=== PATIENT | female | born 1980 | race Two or more races ===

== ENCOUNTER 2016-05-05 21:36 | Inpatient (IN) | payer MEDICAID, OTHER ==
[2016-05-05] MEDS ORDERED: SODIUM CHLORIDE 0.9% FLUSH 20 ML ONE (22:22)
[2016-05-05] MEDS ORDERED: IV START KIT ONE (22:22)
[2016-05-05] MEDS ORDERED: OXYTOCIN IN LR 500 ML IV ONE (22:25)
[2016-05-05] MEDS ORDERED: LACTATED RINGERS 1,000 ML IV PRN (22:25)
[2016-05-05] MEDS ORDERED: PENICILLIN G POTASSIUM 5 MMU in NS 0.9% (MINI-BAG PLUS) 100 ML IV ONE (22:29)
[2016-05-05] MEDS ORDERED: LACTATED RINGERS 1,000 ML IV SCH (22:30)
[2016-05-05] MEDS ORDERED: ACETAMINOPHEN 500 MG TABLET PO ONE (22:30)
[2016-05-05] MEDS ORDERED: PENICILLIN G 3 MIL UNIT PREMIX 50 ML IV ONE (22:42)
[2016-05-05 22:43] VITALS: BMI 31.9
[2016-05-05] MEDS ORDERED: SPINAL PROCEDURAL TRAY 1 EACH ONE (22:47)
[2016-05-05] MEDS ORDERED: PHENYLEPHRINE 10 MG/1 ML (1%) VIAL ONE (22:47)
[2016-05-05] MEDS ORDERED: MORPHINE SULFATE (DURAMORPH) 1 MG/ML 10ML AMP ONE (22:47)
[2016-05-05] MEDS ORDERED: ONDANSETRON 4 MG/2ML 2 ML VIAL ONE (22:47)
[2016-05-05] MEDS ORDERED: OXYTOCIN 10 UNITS/ML VIAL ONE (22:47)
[2016-05-05] MEDS ORDERED: SODIUM CHLORIDE 0.9% FLUSH 10 ML ONE (22:47)
[2016-05-05] MEDS ORDERED: FENTANYL 100 MCG/2 ML VIAL ONE (22:48)
[2016-05-05] MEDS ORDERED: LABETALOL HCL 5 MG/ML 20ML VIAL IV ONE ×2 (22:54→22:55)
--- NOTE | 2016-05-05 22:55 | PCMAN ---
OB Admission Note - History : 4 Term: 2 Abortions (S&E): 1 Livin EDC:: 04/28/16 Gestational Age (weeks): 41 Days (#/7): 0 Admit Cervical Dilation:: 3 Admit Station:: -3 Membrane Status: Intact Contractions: Yes Contraction Frequency:: q3-4 Heart Rate:: 130 Status:: cat II; mod variability with accels but noted late decelerations Summary of Course:: 35yo karmen 04/28/16 came in c/o abdominal cramps and headache all-day, has been having contractions x 1 week, worse today, and had "bloody show" Pt had one visit with [facility] group 10/2015 for initial OB visit. Subsequently did not follow up with care and was lost to care. POBx: h/o x 2 both at 42w with long inductions sab x 1 at 7w surgery: abdominoplasty and breast augmentation Pt has h/o migraines but does not feel this is one. However feels decreased movement last 2 days. - Physical Exam General: Afebrile, Mild Distress Psych/Mental Status: Mood/Affect Appropriate Lungs: Clear to Auscultation Bilaterally Cardiovascular: Regular Rate and Rhythm Genitourinary: Other (3cm dilated) - Additional Comments check PIH labs check UDS check labs magnesium sulfate for severe preeclampsia PCN for GBS prophylaxis considering review of FHT - recurrent late decelerations with 90% of contractions, possible fetus has poor reserve, or uteroplacental insufficiency. in the context of severe preeclampsia and post-dates , recommend c- section delivery at this time. procedure indication and risks are reviewed. labetalol 20mg IV now.
[2016-05-05 22:57] LABS: ABSOLUTE NEUTROPHIL COUNT 4.9 K/mm3 (1.8-7.7); BASO # 0.1 K/mm3 (0.0-0.2); BASO % 1.5 % (0.2-1.0); EOS # 0.1 (0.0-0.5); EOS % 0.8 % (0.9-2.9); HEMATOCRIT 43.8 % (37.0-47.0); HEMOGLOBIN 15.5 gm/l (12.0-16.0); IMM NEUT% 0.3 % (0-1); LYMPH # 3.1 (1.0-4.8); LYMPH % 34.1 % (15-45); MEAN CELL VOLUME 89.6 fl (81.0-99.0); MEAN CORPUSCULAR HEMOGLOBIN 31.7 pg (27.0-31.0); MEAN CORPUSCULAR HGB CONC 35.4 g/dl (33.0-37.0); MEAN PLATELET VOLUME 10.5 fl (7.4-10.4); MONO # 0.7 (0.0-0.8); MONO % 8.2 % (4-12); NEUT % 55.1 % (43-75); PLATELET COUNT 176 K/mm3 (130-400); RED CELL DISTRIBUTION WIDTH 13.2 % (11.5-14.5)
[2016-05-05] MEDS ORDERED: FAMOTIDINE 10 MG/ML 2ML VIAL ONE (23:09)
[2016-05-05] MEDS ORDERED: CITRIC ACID/SODIUM CITRATE 15 ML UDCUP PO ONE (23:09)
[2016-05-05 23:16] LABS: ALB/GLOB RATIO 0.7 (>1.0); ALBUMIN 2.5 gm/dL (3.5-5.7); CALCIUM 8.6 mg/dL (8.6-10.3); URIC ACID 4.7 mg/dL (2.3-7.6)
[2016-05-05] MEDS ORDERED: CEFAZOLIN SODIUM 2 GRAM DUPLEX 50 ML IV ONE (23:17)
[2016-05-05 23:20] LABS: COCAINE NEGATIVE (NEGATIVE)
[2016-05-05 23:21] LABS: MARIJUANA NEGATIVE (NEGATIVE); METHADONE NEGATIVE (NEGATIVE); OPIATES NEGATIVE (NEGATIVE)
[2016-05-06] MEDS ORDERED: OXYTOCIN 10 UNITS/ML VIAL ONE ×2 (00:14)
--- NOTE | 2016-05-06 00:29 | PCMBPN ---
Brief Post Op Note: Date of Procedure: 05/06/16 Start Time: Preoperative Diagnosis: 1. 41w 2. NRFHT 3. severe preeclampsia Postoperative Diagnosis: 1. [Same] 4. growth restriction 5. thick meconium Procedure: primary low transverse Surgeon: Bird Vergara Assist: Kelly Lemus Anesthesia: spinal Findings: baby M 9/9 apgars, 5lbs 10oz, thick pea soup meconium, grossly normal tubes and ovaries placenta and tube also meconium stained Condition: stable Complications: none mLs Estimated Blood Loss: 600 cc Tourniquet Time: [N/A] Specimens: placenta cord pH sent findings of [id number] fetus in 41w gestation and thick meconium indicative of growth restriction, uteroplacental insufficiency.
[2016-05-06] MEDS ORDERED: DIPHENHYDRAMINE HCL 25 MG CAPSULE PO PRN ×3 (00:37→23:30)
[2016-05-06] MEDS ORDERED: LANOLIN 50 APPLIC/7G TUBE TP PRN (00:37)
[2016-05-06] MEDS ORDERED: MAGNESIUM SULFATE 4 G/100 ML 4 G in Premix (Water) 100 ml 1 EACH IV ONE (00:37)
[2016-05-06] MEDS ORDERED: PUMP TUBING ONE ×2 (00:45→00:59)
[2016-05-06] MEDS ORDERED: MAGNESIUM SULFATE 4 G/100 ML 100 ML IV ONE (00:45)
[2016-05-06] MEDS ORDERED: HYDRALAZINE HCL 20 MG/1 ML VIAL IV ONE (01:28)
[2016-05-06] MEDS: MAGNESIUM SULFATE 20 G/500 ML 500 ML IV SCH ×3 (01:51→21:35)
[2016-05-06] MEDS ORDERED: EPHEDRINE SULFATE 50 MG/ML 1ML VIAL IV PRN (02:00)
[2016-05-06] MEDS ORDERED: NALOXONE HCL 0.4 MG/ML VIAL IV PRN (02:00)
[2016-05-06] MEDS ORDERED: NALBUPHINE HCL 20 MG/ML AMP IV PRN (02:00)
[2016-05-06] MEDS ORDERED: ONDANSETRON 4 MG/2ML 2 ML VIAL IV PRN ×2 (02:00→23:30)
[2016-05-06] MEDS ORDERED: HYDROMORPHONE HCL 1 MG/ML SYRINGE IV PRN (02:00)
[2016-05-06] MEDS ORDERED: DIPHENHYDRAMINE HCL 50 MG/1 ML VIAL IV PRN ×2 (02:00→23:30)
[2016-05-06] MEDS ORDERED: HYDROMORPHONE HCL 2 MG/ML SYRINGE IV PRN (02:00)
[2016-05-06] MEDS ORDERED: PROMETHAZINE HCL 25 MG/ML VIAL IM PRN (02:00)
[2016-05-06 02:18] LABS: AMPHETAMINES/METHAMPHETAMINES NEGATIVE (NEGATIVE); COCAINE NEGATIVE (NEGATIVE); MARIJUANA NEGATIVE (NEGATIVE); METHADONE NEGATIVE (NEGATIVE); OPIATES NEGATIVE (NEGATIVE); TRICYCLIC ANTIDEPRESSANTS NEGATIVE (NEGATIVE)
[2016-05-06] MEDS ORDERED: PENICILLIN G 3 MIL UNIT PREMIX 3 MMU in Premix (D5W) 50 ml 1 EACH IV SCH (02:30)
[2016-05-06] MEDS: KETOROLAC TROMETHAMINE 30 MG/ML 1 ML VIAL IV PRN ×3 (02:55→16:21)
[2016-05-06 03:08] LABS: AMPHETAMINES/METHAMPHETAMINES NEGATIVE (NEGATIVE); TRICYCLIC ANTIDEPRESSANTS NEGATIVE (NEGATIVE)
[2016-05-06] MEDS ORDERED: FLU VACC 2016-17 (36MO-64Y)/PF 60 MCG/0.5 ML SYRINGE IM V ONE (03:08)
[2016-05-06 03:26] LABS: CREATININE,RANDOM URINE 36 mg/dL
[2016-05-06] MEDS: LACTATED RINGERS 1,000 ML IV SCH ×4 (07:56→20:42)
--- NOTE | 2016-05-06 08:12 | PDOC44 ---
- Subjective Day: 0 (patient comfortable, no headache, offers no complaints) Reports Pain Tolerable, Reports , Reports Lochia Light, Reports Tolerating Clear Liquids, Denies Flatus, Denies Nausea, Denies Vomiting, Denies Fever - Objective Temp Pulse Resp BP Pulse Ox 97.1 F 78 16 143/90 98 05/06/16 07:05 05/06/16 07:28 05/06/16 07:05 05/06/16 07:28 05/06/16 07:05 Lab Results 05/05/16 22:40 WBC 9.0 RBC 4.89 Hgb 15.5 Hct 43.8 Plt Count 176 Creatinine 1.0 Uric Acid 4.7 AST 79 H ALT 74 H Lactate Dehydrogenase 252 05/05/16 22:40 MCH 31.7 H Baso % (Auto) 1.5 H Eosinophils % 0.8 L Sodium 132 L Carbon Dioxide 18 L BUN/Creatinine Ratio 21 H Glucose 110 H Alkaline Phosphatase 133 H Total Protein 6.1 L Albumin 2.5 L Globulin 3.6 H Albumin/Globulin Ratio 0.7 L Current Medications Generic Name Dose Route Start Last Admin Trade Name Freq PRN Reason Stop Dose Admin Diphenhydramine HCl 25 mg 05/06/16 23:30 Benadryl IV Q6H PRN Itching (Severe) Diphenhydramine HCl 25 - 50 mg 05/06/16 02:00 05/06/16 02:55 Benadryl IV 05/06/16 23:30 50 mg Q4H PRN Administration Itching Diphenhydramine HCl 25 mg 05/06/16 23:30 Benadryl PO Q6H PRN Itching (Mild/Moderate) Docusate Sodium 100 mg 05/06/16 09:00 Colace PO BID LUIS ANGEL Emollient Ointment 1 applic 05/06/16 00:37 [id number] TP PRN PRN sore nipples Ephedrine Sulfate 5 - 10 mg 05/06/16 02:00 Ephedrine Sulfate IV 05/06/16 23:30 Q5M PRN Hydromorphone HCl 0.5 - 2 mg 05/06/16 02:00 Dilaudid IV 05/06/16 23:30 Q1H PRN Pain (Breakthrough) Hydromorphone HCl 0.5 - 2 mg 05/06/16 02:00 Dilaudid IV 05/06/16 23:30 Q1H PRN Pain Lactated Ringer's 1,000 mls @ 100 mls/hr 05/06/16 00:37 05/06/16 07:56 Lactated Ringers IV 100 mls/hr .Q10H LUIS ANGEL Administration Lactated Ringer's 1,000 mls @ 125 mls/hr 05/06/16 00:37 Lactated Ringers IV .Q8H LUIS ANGEL Magnesium Sulfate 500 mls @ 50 mls/hr 05/06/16 00:37 05/06/16 01:51 Magnesium Sulfate IV 50 mls/hr Q10H LUIS ANGEL Administration 2 G/HR Ibuprofen 800 mg 05/06/16 00:37 Motrin PO Q6H PRN Pain Ketorolac Tromethamine 30 mg 05/06/16 00:37 05/06/16 02:55 Toradol IV 30 mg Q6H PRN Administration Pain (Mild/Moderate) Labetalol HCl 200 mg 05/06/16 09:00 Trandate PO BID LUIS ANGEL Multivi/Iron Carb/Fe Sulf/FA/Prenat 1 tab 05/06/16 09:00 Plus PO DAILY LUIS ANGEL Nalbuphine HCl 1 - 5 mg 05/06/16 02:00 05/06/16 05:41 Nubain IV 05/06/16 23:30 2 mg Q4H PRN Administration Itching Naloxone HCl 0.2 - 0.4 mg 05/06/16 02:00 Narcan IV 05/06/16 23:30 Q5M PRN Ondansetron HCl 4 mg 05/06/16 23:30 Zofran IV Q6H PRN Nausea/Vomiting Ondansetron HCl 4 mg 05/06/16 02:00 Zofran IV 05/06/16 23:30 Q6H PRN Nausea/Vomiting Oxycodone/Acetaminophen 1 - 2 tab 05/06/16 00:37 Percocet 5/325 PO Q4H PRN Pain (Moderate) Promethazine HCl 6.25 - 12.5 mg 05/06/16 02:00 Phenergan IM 05/06/16 23:30 Q4H PRN Nausea/Vomiting Sodium Chloride 10 ml 05/06/16 00:37 05/06/16 05:41 Normal Saline 10ml Flush IV 10 ml PRN PRN Administration IV Flush Sodium Chloride 10 ml 05/06/16 09:00 Normal Saline 10ml Flush IV Q8HR LUIS ANGEL - Physical Exam General: Afebrile, No Acute Distress Psych/Mental Status: Mood/Affect Appropriate, Judgment/Insight Intact, Bonding Well Lungs: Clear to Auscultation Bilaterally, Normal Air Movement Breast: Soft, Skin intact, Nipples Intact, No Tenderness, No Erythema, No Engorged Fundus: Firm, Midline, At Umbilicus, Other (nontender) Abdomen: Normal Bowel Sounds, Other (no flatus or bowel movement yet), No Tenderness, No Distention Genitourinary: Indwelling Urinary Cath, Other Lochia: Light Extremities: Edema, Other (+/+ edema), No Tenderness Deep Tendon Reflexes: Patellar (L): 2+ (Brisk, Normal), Patellar (R): 2+ (Brisk , Normal) Wound ELECTRIC METER TESTER SHOP: Dressing in Place - Problems:Assessment/Plan (1) Severe pre-eclampsia Status: Acute Disposition: Stable
[2016-05-06] MEDS: LABETALOL HCL 200 MG TABLET PO SCH ×2 (09:08→21:39)
[2016-05-06] MEDS: PRENATAL VIT/FE FUMARATE/FA 1 TABLET PO SCH (09:18)
--- NOTE | 2016-05-06 09:24 | OP ---
Nieves Jose [id number] DATE OF PROCEDURE: 05/05/2016 PREOPERATIVE DIAGNOSES: 1. Post dates at 41 weeks. 2. Nonreassuring heart tracing. 3. Severe preeclampsia. POSTOPERATIVE DIAGNOSES: 1. Post dates at 41 weeks. 2. Nonreassuring heart tracing. 3. Severe preeclampsia. 4. Intrauterine growth restriction. 5. Thick meconium. PROCEDURE: Primary low transverse section. SURGEON: Bird Vergara M.D. ANIMAL ANATOMY TEACHER: Kelly Lemus CNM. ANESTHESIA: Spinal. ESTIMATED BLOOD LOSS: 600 mL. COMPLICATIONS: None. OPERATIVE FINDINGS: Include live born baby male weighing 5 pounds 10 ounces with very thick meconium. Fetus is found to be in cephalic presentation. OPERATIVE COURSE: The patient was taken to the operating room and placed under spinal anesthesia. The patient was then placed in a supine position with a Santamaria catheter and prepped and draped in a sterile fashion. Adequate anesthesia was confirmed. A pfannenstiel incision was made and taken down to the level of the fascia. The fascia was incised transversely and dissected bilaterally off the underlying rectus muscles. Of note, patient's fascia exam is consistent with previous abdominoplasty. The rectus muscles was then easily in the midline and the peritoneal cavity was then entered bluntly and stretched. An Jeanmarie retractor was then placed and a bladder flap was then created and dissected bluntly inferiorly. A transverse incision was made on the lower uterine segment and stretched. At this point, membranes were then ruptured and was noted to have very thick pea soup meconium. Baby's head was then delivered and bulb suction was then applied to the mouth and nares. Shoulders were then delivered easy and baby was then delivered. The cord was clamped and cut and baby was taken to the warmer for the nursing staff. Placenta was then extracted manually and the uterus was cleared of all clots and membranes. The uterine incision was then closed with 0 Vicryl in a continuous layer and a second layer of 0 Vicryl was used to imbricate this incision. Further areas of hemostasis was created with a figure of eight suture. There was good hemostasis observed. The peritoneum was then reapproximated with 3-0 Vicryl. The rectus muscle was reapproximated with 3-0 Vicryl and horizontal mattress sutures. The fascia was then closed with 0 Vicryl in a continuous fashion. The subcutaneous space was then reapproximated with Chromic suture and the skin was then closed with 3-0 Monocryl. The patient was then recovered from anesthesia and taken to the recovery room in stable condition. JOB: [id number]
[2016-05-06] MEDS: ACETAMINOPHEN 500 MG TABLET PO PRN ×2 (09:30→16:21)
[2016-05-06] MEDS: DOCUSATE SODIUM 100 MG CAPSULE PO SCH ×2 (10:29→23:13)
[2016-05-07] MEDS: KETOROLAC TROMETHAMINE 30 MG/ML 1 ML VIAL IV PRN ×2 (01:44→08:09)
[2016-05-07] MEDS: LACTATED RINGERS 1,000 ML IV SCH ×2 (01:55→03:15)
[2016-05-07] MEDS: OXYCODONE/ACETAMINOPHEN 5/325 MG TABLET PO PRN ×2 (08:09→14:17)
--- NOTE | 2016-05-07 08:18 | PDOC44 ---
- Subjective Day: 1 (occasional headache, but feels better since stopping the magnesium sulfate) Reports Flatus, Reports Pain Tolerable, Reports , Reports Lochia Light, Reports Tolerating Regular Diet, Denies Nausea, Denies Vomiting, Denies Fever - Objective Temp Pulse Resp BP Pulse Ox 97.7 F 68 16 115/80 98 05/07/16 07:46 05/07/16 07:46 05/07/16 07:46 05/07/16 07:46 05/07/16 01:00 Current Medications Generic Name Dose Route Start Last Admin Trade Name Freq PRN Reason Stop Dose Admin Acetaminophen 1,000 mg 05/06/16 09:01 05/06/16 16:21 Tylenol PO 1,000 mg Q6H PRN Administration Pain or Temperature > 100.5 F Diphenhydramine HCl 25 mg 05/06/16 23:30 Benadryl IV Q6H PRN Itching (Severe) Diphenhydramine HCl 25 mg 05/06/16 23:30 Benadryl PO Q6H PRN Itching (Mild/Moderate) Docusate Sodium 100 mg 05/06/16 09:00 05/06/16 23:13 Colace PO 100 mg BID LUIS ANGEL Administration Emollient Ointment 1 applic 05/06/16 00:37 [id number] TP PRN PRN sore nipples Lactated Ringer's 1,000 mls @ 100 mls/hr 05/06/16 00:37 05/07/16 01:55 Lactated Ringers IV Not Given .Q10H LUIS ANGEL Lactated Ringer's 1,000 mls @ 125 mls/hr 05/06/16 00:37 05/07/16 03:15 Lactated Ringers IV Not Given .Q8H LUIS ANGEL Ibuprofen 800 mg 05/06/16 00:37 Motrin PO Q6H PRN Pain Ketorolac Tromethamine 30 mg 05/06/16 00:37 05/07/16 08:09 Toradol IV 30 mg Q6H PRN Administration Pain (Mild/Moderate) Labetalol HCl 200 mg 05/06/16 09:00 05/06/16 21:39 Trandate PO Not Given BID LUIS ANGEL Multivi/Iron Carb/Fe Sulf/FA/Prenat 1 tab 05/06/16 09:00 05/06/16 09:18 Plus PO Not Given DAILY LUIS ANGEL Ondansetron HCl 4 mg 05/06/16 23:30 Zofran IV Q6H PRN Nausea/Vomiting Oxycodone/Acetaminophen 1 - 2 tab 05/06/16 00:37 05/07/16 08:09 Percocet 5/325 PO 2 tab Q4H PRN Administration Pain (Moderate) Sodium Chloride 10 ml 05/06/16 00:37 05/06/16 09:30 Normal Saline 10ml Flush IV 10 ml PRN PRN Administration IV Flush Sodium Chloride 10 ml 05/06/16 09:00 05/07/16 08:09 Normal Saline 10ml Flush IV 10 ml Q8HR LUIS ANGEL Administration - Physical Exam General: Afebrile, No Acute Distress Psych/Mental Status: Mood/Affect Appropriate, Judgment/Insight Intact, Bonding Well Lungs: Clear to Auscultation Bilaterally, Normal Air Movement Breast: Soft, Skin intact, Nipples Intact, No Tenderness, No Erythema, No Engorged Fundus: Firm, Midline, At Umbilicus, Other (nontender) Abdomen: Normal Bowel Sounds, Mild Distention, Other (passed flatus, no bowel movement yet), No Tenderness Genitourinary: Indwelling Urinary Cath Lochia: Light Extremities: No Edema, No Tenderness Deep Tendon Reflexes: Patellar (L): 2+ (Brisk, Normal), Patellar (R): 2+ (Brisk , Normal) Wound FOOTWEAR STITCHER: Well Approximated, No Drainage, No Erythema, No Edema - Problems:Assessment/Plan (1) Severe pre-eclampsia Status: Acute Disposition: Stable (cbc and chemistry ordered.)
[2016-05-07] MEDS: DOCUSATE SODIUM 100 MG CAPSULE PO SCH ×2 (09:35→20:49)
[2016-05-07] MEDS: PRENATAL VIT/FE FUMARATE/FA 1 TABLET PO SCH (09:35)
[2016-05-07 11:14] LABS: HEMATOCRIT 35.6 % (37.0-47.0); HEMOGLOBIN 12.2 gm/l (12.0-16.0)
[2016-05-07] MEDS: IBUPROFEN 800 MG TABLET PO PRN ×2 (14:17→20:49)
[2016-05-08] MEDS: OXYCODONE/ACETAMINOPHEN 5/325 MG TABLET PO PRN (05:22)
[2016-05-08] MEDS: IBUPROFEN 800 MG TABLET PO PRN (05:22)
[2016-05-08 06:54] LABS: ABSOLUTE NEUTROPHIL COUNT 5.5 K/mm3 (1.8-7.7); BASO # 0.1 K/mm3 (0.0-0.2); EOS # 0.1 (0.0-0.5); EOS % 1.2 % (0.9-2.9); HEMATOCRIT 35.4 % (37.0-47.0); HEMOGLOBIN 12.1 gm/l (12.0-16.0); IMM NEUT% 0.2 % (0-1); LYMPH # 2.8 (1.0-4.8); LYMPH % 30.5 % (15-45); MEAN CELL VOLUME 93.7 fl (81.0-99.0); MEAN CORPUSCULAR HGB CONC 34.2 g/dl (33.0-37.0); MEAN PLATELET VOLUME 10.1 fl (7.4-10.4); MONO # 0.6 (0.0-0.8); MONO % 6.5 % (4-12); NEUT % 60.6 % (43-75); PLATELET COUNT 188 K/mm3 (130-400)
[2016-05-08 07:18] LABS: ALB/GLOB RATIO 0.6 (>1.0); ALBUMIN 2.1 gm/dL (3.5-5.7); CALCIUM 7.5 mg/dL (8.6-10.3)
[2016-05-08] MEDS: LACTATED RINGERS 1,000 ML IV SCH ×3 (07:26→07:27)
[2016-05-08] MEDS: DOCUSATE SODIUM 100 MG CAPSULE PO SCH (07:35)
[2016-05-08] MEDS: PRENATAL VIT/FE FUMARATE/FA 1 TABLET PO SCH (07:35)
[2016-05-08 08:22] VITALS: BP 140/90
--- NOTE | 2016-05-08 09:09 | PDOC39B ---
Hospital Course: ADMIT DATE: 05/05/16 DISCHARGE DATE: 05/08/16 ADMISSION DIAGNOSES: severe preeclampsia, labor, category 2 heart tracing , headache, intrauterine 41 weeks gestation PROCEDURES: primary lower segment cesarian section HISTORY OF PRESENT ILLNESS: 35 year old G4 T2 L2 at 41 weeks 0 days presenting with onset of labor, headache and elevated blood pressure HOSPITAL COURSE: The patient post operatively had elevated blood pressures and was given labetolol. headaches resolved, does have right sciatic pain. By day of discharge the patient is ambulating, eating, voiding, and passing flatus without difficulty. Pain is controlled and lochia is appropriate. She is [] - Physical Exam Vital Signs: Temp Pulse Resp BP Pulse Ox 98.0 F 86 16 140/90 98 05/08/16 07:55 05/08/16 07:55 05/08/16 07:55 05/08/16 07:55 05/07/16 01:00 General: Afebrile, No Acute Distress Psych/Mental Status: Mood/Affect Appropriate, Judgment/Insight Intact, Bonding Well Neurological: Grossly Intact, Alert, Oriented x 4, Normal Speech, Normal Reflexes Lungs: Clear to Auscultation Bilaterally, Normal Air Movement Breast: Soft, Skin intact, Nipples Intact, No Tenderness, No Erythema, No Engorged Fundus: Firm, Midline, At Umbilicus, Other (nontender) Abdomen: Normal Bowel Sounds, Other (flatus passed, no bowel movement yet), No Tenderness, No Distention Genitourinary: Other (voiding without difficulty) Lochia: Light Extremities: No Tenderness Deep Tendon Reflexes: Patellar (L): 2+ (Brisk, Normal), Patellar (R): 2+ (Brisk , Normal) Wound: Well Approximated, Other (nontender), No Drainage, No Erythema, No Edema - Discharge Diagnosis (1) Severe pre-eclampsia Status: Acute (2) Right-sided low back pain with sciatica Status: Acute (3) Headache Status: Acute (4) Meconium in amniotic fluid affecting management of mother Status: Acute - Discharge Plan Condition: Stable
[2016-05-08] MEDS ORDERED: MEASLES,MUMPS&RUBELLA VACCINE 0.5 ML VIAL SUB-Q V ONE (09:29)
[2016-05-08] MEDS ORDERED: DIPHTH,PERTUSS(ACELL),TET VAC 0.5 ML VIAL IM V ONE (09:29)
== END 2016-05-08 13:03 | disposition home or self-care (01) | DRG 765 ==
LOC: FBCOUT 21:36 → FBC 21:36 → FBCOUT 22:22
PROVIDERS: ADMIT Obstetrics & Gynecology; ATTEND Obstetrics & Gynecology
PROC: 10D00Z1 Extraction of Products of Conception, Low, Open Approach (ICD-10-PCS; principal; 2016-05-05)
DX: O48.0 Post-term pregnancy (principal); O36.5930 Maternal care for other known or suspected poor fetal growth, third trimester, not applicable or unspecified; O76 Abnormality in fetal heart rate and rhythm complicating labor and delivery; O36.8130 Decreased fetal movements, third trimester, not applicable or unspecified; O14.14 Severe pre-eclampsia complicating childbirth; O77.0 Labor and delivery complicated by meconium in amniotic fluid; O75.89 Other specified complications of labor and delivery; Z3A.41 41 weeks gestation of pregnancy; Z37.0 Single live birth; R51 Headache